=== PATIENT | male | born 1985 | race Caucasian/White ===

== ENCOUNTER 2016-07-07 14:11 | Emergency (ER) | payer OTHER ==
[~2016-07-07] VITALS: Ht 177.8 cm; Wt 62.0 kg
[2016-07-07 14:12] VITALS: BP 106/70; PULSE 70; RESP 14; TEMP 98; O2SAT 100
--- NOTE | 2016-07-07 14:24 | PD ---
Physical Exam Time Seen by Provider: 14:21 Narrative 30 y/o male with [facility] 6 days ago presents with L heel pain since then, worse when walking. Vital signs reviewed. Seen at triage desk. Awaiting bed placement. Data Data Last Documented VS Vital Signs Date Time Temp Pulse Resp B/P Pulse Ox O2 Delivery O2 Flow Rate FiO2 07/07/16 14:12 98.0 70 14 106/70 100 MDM Medical Record Reviewed: Yes Supervised Visit with CAREN: Hermelindo Aragon July 07, 2016 14:23
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
[2016-07-07] MEDS ORDERED: IBUP800T23 PO (15:45)
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
== END 2016-07-07 16:05 | disposition home or self-care (01) ==
LOC: NEPK 14:11
DX: M79.672 Pain in left foot (principal)
CPT/HCPCS: 73630; 99283